=== PATIENT | female | born 1955 | race African-American/Black ===

== ENCOUNTER 2018-01-10 12:38 | Inpatient (IN) | payer OTHER ==
[~2018-01-10] VITALS: Ht 165.1 cm; Wt 71.6 kg
[~2018-01-10 12:38] MED LIST: ADULT LOW DOSE81 M1 PO; AMLODIPINE BESY10 MG PO; AMLODIPINE BESYL5 MG PO; ATENOLOL50 MG PO; CHLORTHALIDONE25 MG PO; CLONIDINE HCL0.1 MG PO; CLONIDINE HCL0.2 MG PO; HYDROCHLOROTHIA25 MG PO; HYDROCODON-ACE1 EAC7 PO; IBUPROFEN800 MG PO; INHALER PRN; LISINOPRIL20 MG PO; LOPRESSOR100 M1 PO; LOPRESSOR50 MG PO; LORATADINE10 M2 PO; LOSARTAN POTAS100 MG PO; METOPROLOL TAR100 MG PO; NORCO 5/3251 TABLET PO; PANTOPRAZOLE SO40 MG PO; PEG-3350 WITH4000 ML PO; SINGULAIR10 MG PO; TRAZODONE HCL100 MG PO; VITAMIN D; ZADITOR 0.100 DROP/5 BOTH EYES
[2018-01-10 14:16] LABS: HEMATOCRIT 38.4 % (36.0-46.0); HEMOGLOBIN 13.8 G/DL (11.9-15.5); MCH 28.8 PG (29.0-34.0); MCHC 35.9 G/DL (30.0-36.0); PLATELET COUNT 251 K/uL (156-360); RBC DIS.WIDTH-CV 14.6 % (11.8-14.6); RBC DIS.WIDTH-SD 42.5 % (39-53); WHITE BLOOD COUNT 5.2 K/uL (4.1-10.2)
[2018-01-10 14:25] LABS: CHLORIDE 105 mEq/L (99-109); POTASSIUM 4.8 mEq/L (3.7-5.4); SODIUM 139 mEq/L (136-147)
[2018-01-10 14:27] LABS: PTT 27.7 SEC (25-37)
[2018-01-10 14:28] LABS: GLUCOSE 93 mg/dL (70-99); TOTAL PROTEIN 7.7 g/dL (6.4-8.3)
[2018-01-10 14:30] LABS: TOTAL BILIRUBIN 0.6 mg/dL (0.0-1.0)
[2018-01-10 14:31] LABS: ALKALINE PHOSPHATASE 64 IU/L (3-129); CREATININE 0.9 mg/dL (0.6-1.3); GFR ESTIMATE (CALCULATED) > 59 mL/min/
[2018-01-10 14:32] LABS: UREA NITROGEN (BUN) 11 mg/dL (9-23)
[2018-01-10 14:33] LABS: AST (GOT) 18 IU/L (2-34)
[2018-01-10 14:34] LABS: ALT (GPT) 21 IU/L (3-49)
[2018-01-10 14:37] LABS: TROP-I INTERPRETATION NEGATIVE; TROPONIN-I 0.02 ng/mL (0.0-0.30)
[2018-01-10] MEDS ORDERED: LO-DOSE ASPIRIN81 M2 PO (16:26)
[2018-01-10] MEDS ORDERED: LIPITOR80 MG PO (16:26)
[2018-01-10 16:33] VITALS: BP 221/106
[2018-01-10 16:38] LABS: HDL CHOLESTEROL 56 MG/DL (Desirable>=50); LDL CHOLESTEROL 131 mg/dL (Desirable<100); NON-HDL CHOLESTEROL 145 mg/dL (Desirable<160); TOTAL CHOLESTEROL 201 mg/dL (Desirable<200); TRIGLYCERIDES 71 MG/DL (Normal: <150)
[2018-01-10 17:30] VITALS: BP 208/104
[2018-01-10 17:45] VITALS: BP 192/96
[2018-01-10 17:56] LABS: THYROTROPIN (TSH) 1.3 MIU/L (0.4-5.5)
[2018-01-10 18:00] VITALS: BP 200/90
[2018-01-10 19:17] VITALS: BP 179/120
[2018-01-10 19:25] VITALS: BP 179/120
[2018-01-10 20:11] LABS: TROP-I INTERPRETATION NEGATIVE; TROPONIN-I 0.02 ng/mL (0.0-0.30)
[2018-01-11] VITALS (7 sets, daily range): BP systolic 121–190; BP diastolic 59–92
[2018-01-11 02:11] LABS: TROP-I INTERPRETATION NEGATIVE; TROPONIN-I < 0.01 ng/mL (0.0-0.30)
[2018-01-11 06:34] LABS: HEMATOCRIT 37.5 % (36.0-46.0); MCH 27.7 PG (29.0-34.0); MCHC 34.7 G/DL (30.0-36.0); MCV 79.8 FL (83-99); PLATELET COUNT 268 K/uL (156-360); RBC DIS.WIDTH-CV 14.6 % (11.8-14.6); RBC DIS.WIDTH-SD 42.4 % (39-53); WHITE BLOOD COUNT 4.7 K/uL (4.1-10.2)
[2018-01-11 06:50] LABS: PTT 29.3 SEC (25-37)
[2018-01-11 06:59] LABS: CHLORIDE 106 MEQ/L (99-109); CREATININE 0.9 MG/DL (0.6-1.3); GFR ESTIMATE (CALCULATED) > 59 mL/min/; GLUCOSE 101 mg/dL (70-99); POTASSIUM 4.7 MEQ/L (3.7-5.4); SODIUM 138 MEQ/L (136-147); UREA NITROGEN (BUN) 17 mg/dL (9-23)
[2018-01-11 10:22] LABS: HEMOGLOBIN A1c (GLYCOHEMOGLOB) 5.2 % (Below 5.7)
[2018-01-12 07:15] VITALS: BP 143/73
[2018-01-12 13:45] VITALS: BP 147/70
[2018-01-12] MEDS ORDERED: LOPRESSOR50 MG PO (14:43)
[2018-01-12] MEDS ORDERED: APRESOLINE25 MG PO (14:43)
[2018-01-12] MEDS ORDERED: LISINOPRIL20 MG PO (14:44)
== END 2018-01-12 15:27 | disposition home or self-care (01) | DRG 305 ==
LOC: EME 12:38 → EDOF 15:25 → 4EAST 15:25 → ENRESERV 15:33 → 4SOUTH 16:20 → ENRESERV 17:33 → 4EAST 18:53
PROVIDERS: Emergency Medicine; Hospitalist
DX: I16.0 Hypertensive urgency (principal); I25.110 Atherosclerotic heart disease of native coronary artery with unstable angina pectoris; E78.5 Hyperlipidemia, unspecified; F17.210 Nicotine dependence, cigarettes, uncomplicated; I10 Essential (primary) hypertension; K21.9 Gastro-esophageal reflux disease without esophagitis; F41.9 Anxiety disorder, unspecified; F10.10 Alcohol abuse, uncomplicated; Y90.9 Presence of alcohol in blood, level not specified; R61 Generalized hyperhidrosis; H53.8 Other visual disturbances; R42 Dizziness and giddiness; R00.1 Bradycardia, unspecified; Z60.2 Problems related to living alone; J45.909 Unspecified asthma, uncomplicated; Z79.82 Long term (current) use of aspirin; Z90.710 Acquired absence of both cervix and uterus; Z91.14 Patient's other noncompliance with medication regimen; Z79.51 Long term (current) use of inhaled steroids; S82.842S Displaced bimalleolar fracture of left lower leg, sequela; W18.39XS Other fall on same level, sequela; Z82.49 Family history of ischemic heart disease and other diseases of the circulatory system
CPT/HCPCS: 71045; 71275; 78452; 80048; 80053; 80061; 83036; 84443; 84484; 85027; 85610; 85730; 93005; 93017; 99281; 99285; A9500; G0378; J0360; J1650; J2785; S0028